=== PATIENT | male | born 1950 | race Caucasian/White ===

== ENCOUNTER 2018-06-20 07:52 | Day surgery (SDC) | payer MEDICARE, BC ==
[~2018-06-20] VITALS: Ht 182.9 cm; Wt 93.0 kg
[2018-06-20] MEDS ORDERED: MULT-1146 MT (08:30)
[2018-06-20] MEDS ORDERED: LISI1TAB9 MT (08:30)
[2018-06-20] MEDS ORDERED: SIMV40TA5 PO (08:30)
[2018-06-20] MEDS ORDERED: IODIXANOL 320MG/ML 100 ML BOTTLE IV ONE (09:21)
[2018-06-20] MEDS ORDERED: LIDOCAINE HCL 1% 20ML VIAL (Pyxis) INJ ONE (09:21)
[2018-06-20] MEDS ORDERED: FENTANYL CITRATE/PF 50MCG/ML 2ML VIAL ONE (10:24)
[2018-06-20] MEDS ORDERED: MIDAZOLAM HCL 2 MG/2 ML VIAL ONE (10:24)
[2018-06-20] MEDS ORDERED: ATROPINE SULFATE 1MG/10ML SYR IV PRN (11:15)
[2018-06-20] MEDS ORDERED: ONDANSETRON HCL 4MG/2ML INJ IV PRN (11:15)
[2018-06-20] MEDS ORDERED: ACETAMINOPHEN 325MG TABLET PO PRN (11:15)
[2018-06-20] MEDS ORDERED: NITROGLYCERIN 50MCG/ML 10ML VIAL (CATH LAB) IV ONE (13:24)
[2018-06-20] MEDS ORDERED: NICARDIPINE 100MCG/ML 10ML VIAL (CATH LAB) IV ONE (13:24)
[2018-06-20] MEDS ORDERED: HEPARIN SODIUM 1,000 UNIT/1ML VIAL IV ONE (14:48)
== END 2018-06-20 14:45 | disposition home or self-care (01) ==
LOC: CCL 07:52
PROVIDERS: ATTEND Specialist
DX: I25.118 Atherosclerotic heart disease of native coronary artery with other forms of angina pectoris (principal); I11.9 Hypertensive heart disease without heart failure; G47.33 Obstructive sleep apnea (adult) (pediatric); F41.9 Anxiety disorder, unspecified; E78.5 Hyperlipidemia, unspecified; I73.9 Peripheral vascular disease, unspecified; E66.9 Obesity, unspecified; Z68.27 Body mass index [BMI] 27.0-27.9, adult; Z79.82 Long term (current) use of aspirin; Z79.899 Other long term (current) drug therapy
CPT/HCPCS: 85347; 93458; 93571; 99152; 99153; C1769; J1644; J2250; J3010; J3490; Q9967; C1887; C1893; G0500